=== PATIENT | male | born 1960 | race Caucasian/White ===

== ENCOUNTER 2017-07-10 06:51 | Emergency (ER) | payer MEDICARE ==
[~2017-07-10] VITALS: Ht 170.2 cm; Wt 86.4 kg
[~2017-07-10 06:51] MED LIST: GLUCOTROL XL10 MG PO; LANTUS100 U/ML SC; PEPCID 20MG TAB20 MG PO; PLAVIX 75MG TAB75 MG PO; TIROSINT150 MCG PO; ULTRAM 50MG TAB50 MG PO
[2017-07-10 06:56] VITALS: TEMP 97.4
[2017-07-10 09:21] LABS: BASO % 0.6 % (0.0-2.0); EOS # 0.1 (0.0-0.7); EOS % 2.9 % (0-4.0); GRAN # 3.6 (1.4-6.5); GRAN % 74.7 % (42.2-75.2); HEMOGLOBIN 13.3 g/dl (13.5-18.0); LYMPH # 0.6 (1.2-3.4); LYMPH % 12.6 % (20.0-51.0); MEAN CELL VOLUME 91 fl (80.0-100.0); MEAN CORPUSCULAR HEMOGLOBIN 32 pg (27.0-31.0); MEAN CORPUSCULAR HGB CONC 35 g/dl (33.0-37.0); MEAN PLATELET VOLUME 9.9 fl (7.4-10.4); MONO # 0.4 (0.1-0.6); PLATELET COUNT 122 K/mm3 (130-400); RED BLOOD COUNT 4.19 M/mm3 (4.20-5.60); REDCELL DISTRIBUTION WIDTH-CV 12.2 % (11.5-14.5)
[2017-07-10 09:26] LABS: PROTHROMBIN TIME 10.9 SECONDS (9.7-12.8)
[2017-07-10 09:32] LABS: ALANINE AMINOTRANSFERASE 30 U/L (21-72); ALBUMIN 3.9 gm/dL (3.5-5.0); ALKALINE PHOSPHATASE 133 U/L (50-136); ANION GAP 11 mmol/L (7-16); AST,SGOT 26 U/L (15-37); BILIRUBIN,TOTAL 0.8 mg/dL (0.0-1.0); BLOOD UREA NITROGEN 21 mg/dL (9-20); CALCIUM 8.9 mg/dL (8.4-10.2); CARBON DIOXIDE 24 mmol/L (22-30); CHLORIDE 102 mmol/L (98-107); CREATININE, serum 1.66 mg/dL (0.66-1.25); GLUCOSE 304 mg/dL (74-106); POTASSIUM 5.4 mmol/L (3.4-5.0); SODIUM 136 mmol/L (137-145); TOTAL PROTEIN 7.5 gm/dL (6.4-8.2)
[2017-07-10 09:44] LABS: TROPONIN-I < 0.012 ng/mL (0.000-0.034)
[2017-07-10 10:00] VITALS: BP 118/75
[2017-07-10] MEDS ORDERED: SYNTHROID 0.10.15 MG PO (11:16)
[2017-07-10] MEDS ORDERED: PLAVIX 75MG TAB75 MG PO (11:16)
[2017-07-10 11:46] VITALS: PULSE 78
== END 2017-07-10 11:46 | disposition home or self-care (01) ==
LOC: COL.ER 06:51
PROVIDERS: Emergency Medicine
DX: E11.9 Type 2 diabetes mellitus without complications (principal); E03.9 Hypothyroidism, unspecified; I25.10 Atherosclerotic heart disease of native coronary artery without angina pectoris; E78.5 Hyperlipidemia, unspecified; F84.5 Asperger's syndrome; Z86.73 Personal history of transient ischemic attack (TIA), and cerebral infarction without residual deficits; Z95.5 Presence of coronary angioplasty implant and graft; Z90.89 Acquired absence of other organs; Z79.4 Long term (current) use of insulin; Z79.02 Long term (current) use of antithrombotics/antiplatelets
CPT/HCPCS: J1815

== ENCOUNTER → 2017-07-18 | Outpatient (REF) ==
[~2017-07-18] MED LIST changes: +SYNTHROID 0.10.15 MG PO
== END ==
LOC: ZLAB.WCH 11:58
DX: Z01.89 Encounter for other specified special examinations (principal)